=== PATIENT | female | born 1970 | race Two or more races ===

== ENCOUNTER 2017-09-01 09:43 | Emergency (ER) | payer BC ==
[~2017-09-01] VITALS: Ht 165.1 cm; Wt 113.4 kg
[2017-09-01 09:56] VITALS: Ht 165.1 cm; Wt 113.4 kg
[2017-09-01 12:53] VITALS: BP 122/59
== END 2017-09-01 12:53 | disposition home or self-care (01) ==
LOC: ED 09:43 → EDBD 09:43 → ED 12:53
DX: S33.5XXA Sprain of ligaments of lumbar spine, initial encounter (principal); S13.4XXA Sprain of ligaments of cervical spine, initial encounter; I10 Essential (primary) hypertension; E11.9 Type 2 diabetes mellitus without complications; V89.2XXA Person injured in unspecified motor-vehicle accident, traffic, initial encounter; Y93.73 Activity, racquet and hand sports; Y92.89 Other specified places as the place of occurrence of the external cause; Y99.8 Other external cause status
CPT/HCPCS: J1885